=== PATIENT | female | born 1970 | race Caucasian/White ===

== ENCOUNTER 2016-12-09 09:59 | Day surgery (SDC) | payer BC ==
[2016-12-09 10:34] VITALS: BMI 47.2
[2016-12-09] MEDS ORDERED: Propofol 10 mg/ml Inj (20 ML) ONE ×2 (11:47→12:45)
[2016-12-09 13:10] VITALS: TEMP 97.6
[2016-12-09 13:32] VITALS: O2SAT 100
[2016-12-09 13:57] VITALS: BP 142/78; PULSE 77; RESP 16
== END 2016-12-09 14:35 | disposition home or self-care (01) ==
LOC: C.ENDO 09:59
PROVIDERS: ATTEND Internal Medicine Gastroenterology
DX: D12.0 Benign neoplasm of cecum (principal); K64.8 Other hemorrhoids; Z68.42 Body mass index [BMI] 45.0-49.9, adult
CPT/HCPCS: 45388; 84703; 88305; J2704

== ENCOUNTER 2018-10-28 10:55 | Outpatient (CLI) | payer BC | END 2018-10-28 10:56 | disposition home or self-care (01) | LOC: C.MAMMO 10:55 | DX: Z12.31 Encounter for screening mammogram for malignant neoplasm of breast (principal) ==